=== PATIENT | male | born 1980 | race Asian ===

== ENCOUNTER 2019-12-26 17:04 | Emergency (ER) | payer OTHER ==
[~2019-12-26] VITALS: Ht 175.3 cm; Wt 77.3 kg
[2019-12-26 17:34] VITALS: Ht 175.3 cm; Wt 77.3 kg
[2019-12-26] MEDS ORDERED: VOLTAREN75 MG PO (18:19)
[2019-12-26] MEDS ORDERED: METHOCARBAMOL500 MG PO (18:19)
[2019-12-26 18:42] VITALS: BP 133/91
== END 2019-12-26 18:50 | disposition home or self-care (01) ==
LOC: D.ER 17:04
DX: M51.16 Intervertebral disc disorders with radiculopathy, lumbar region (principal); M54.5 Low back pain

== ENCOUNTER 2019-12-31 16:10 | Emergency (ER) | payer MEDICAID ==
[~2019-12-31] VITALS: Ht 175.3 cm; Wt 77.3 kg
[~2019-12-31 16:10] MED LIST: METHOCARBAMOL500 MG PO; VOLTAREN75 MG PO
[2019-12-31 16:27] VITALS: Ht 175.3 cm; Wt 77.3 kg
[2019-12-31] MEDS ORDERED: PREDNISONE20 MG PO (17:23)
[2019-12-31 17:34] VITALS: BP 133/76
== END 2019-12-31 17:34 | disposition home or self-care (01) ==
LOC: D.ER 16:10
DX: M54.16 Radiculopathy, lumbar region (principal); M54.5 Low back pain; G89.29 Other chronic pain; R53.1 Weakness; M79.604 Pain in right leg